=== PATIENT | male | born 1990 | race Caucasian/White ===

== ENCOUNTER 2017-03-01 14:18 | Emergency (ER) | payer SELFPAY ==
[~2017-03-01] VITALS: Ht 185.4 cm; Wt 106.6 kg
[2017-03-01] MEDS ORDERED: CYCLOBENZAPRINE10 MG PO (14:47)
[2017-03-01] MEDS ORDERED: NAPROSYN500 MG PO (14:47)
== END 2017-03-01 14:50 | disposition home or self-care (01) ==
LOC: ED 14:18
DX: G89.29 Other chronic pain (principal); M54.5 Low back pain; M25.511 Pain in right shoulder; F17.200 Nicotine dependence, unspecified, uncomplicated

== ENCOUNTER 2017-03-03 19:19 | Emergency (ER) | payer SELFPAY ==
[~2017-03-03] VITALS: Ht 185.4 cm; Wt 106.6 kg
[~2017-03-03 19:19] MED LIST: CYCLOBENZAPRINE10 MG PO; NAPROSYN500 MG PO
== END 2017-03-03 20:47 | disposition home or self-care (01) ==
LOC: ED 19:19
DX: M54.5 Low back pain (principal); F17.200 Nicotine dependence, unspecified, uncomplicated

== ENCOUNTER 2017-04-20 11:05 | Emergency (ER) | payer SELFPAY ==
[~2017-04-20] VITALS: Ht 182.8 cm; Wt 106.6 kg
[2017-04-20] MEDS ORDERED: NAPROSYN500 MG PO (11:38)
[2017-04-20] MEDS ORDERED: CYCLOBENZAPRINE10 MG PO (11:38)
== END 2017-04-20 12:06 | disposition home or self-care (01) ==
LOC: ED 11:05
DX: G89.29 Other chronic pain (principal); M54.5 Low back pain; F17.200 Nicotine dependence, unspecified, uncomplicated

== ENCOUNTER 2017-09-11 12:24 | Emergency (ER) | payer OTHER ==
[~2017-09-11] VITALS: Ht 185.4 cm; Wt 108.9 kg
[2017-09-11] MEDS ORDERED: AMOXICILLIN500 M2 PO (13:35)
[2017-09-11] MEDS ORDERED: Motrin,Rufen800 MG PO (13:35)
== END 2017-09-11 13:59 | disposition home or self-care (01) ==
LOC: ED 12:24
DX: J02.0 Streptococcal pharyngitis (principal); F17.200 Nicotine dependence, unspecified, uncomplicated

== ENCOUNTER 2025-04-04 10:50 | Emergency (ER) | payer OTHER ==
[~2025-04-04] VITALS: Ht 182.8 cm; Wt 117.9 kg
[~2025-04-04 10:50] MED LIST changes: +AMOXICILLIN500 M2 PO; +Motrin,Rufen800 MG PO
[2025-04-04] MEDS ORDERED: METHOCARBAMOL 750 MG TAB PO ONE (11:05)
[2025-04-04] MEDS ORDERED: diazePAM 10 MG/2 ML SYR IM ONE ×2 (11:05→12:40)
[2025-04-04] MEDS ORDERED: METHOCARBAMOL750 M1 PO (13:15)
== END 2025-04-04 13:18 | disposition home or self-care (01) ==
LOC: ED 10:50
DX: R68.84 Jaw pain (principal); M62.838 Other muscle spasm; Z79.899 Other long term (current) drug therapy